=== PATIENT | female | born 2000 | race Hispanic/Latino ===

== ENCOUNTER 2023-12-17 23:35 | Outpatient (CLI) | payer MEDICAID ==
[~2023-12-17] VITALS: Ht 162.6 cm; Wt 92.5 kg
[2023-12-17 23:49] VITALS: BP 110/70; O2SAT 98
[2023-12-18] MEDS ORDERED: PRENTAB9 PO (00:15)
[2023-12-18] MEDS ORDERED: ASPI81CH33 PO (00:15)
[2023-12-18] MEDS ORDERED: HOME MED LIST COMPLETE! XX SCH (00:15)
[2023-12-18 00:52] LABS: HEMATOCRIT 35.3 % (36.0-47.0); HEMOGLOBIN 11.6 g/dl (12.0-15.5); MEAN CORPUSCULAR HEMOGLOBIN 27.2 pg (27.0-33.0); MEAN CORPUSCULAR HGB CONC 32.9 g/dl (32.0-36.5); MEAN CORPUSCULAR VOLUME 82.9 fl (80.0-96.0); PLATELET COUNT, AUTOMATED 317 10^3/uL (150-450); RED BLOOD COUNT 4.26 10^6/uL (4.00-5.40); WHITE BLOOD COUNT 12.3 10^3/uL (4.0-10.0)
[2023-12-18 01:02] LABS: ALBUMIN 2.6 G/DL (3.2-5.2); ALKALINE PHOSPHATASE 131 U/L (46-116); ALT/SGPT < 9 U/L (7.0-40); AST/SGOT 9 U/L (<34); BILIRUBIN,TOTAL 0.2 MG/DL (0.3-1.2); BLOOD UREA NITROGEN 5 MG/DL (9-23); CALCIUM LEVEL 9.1 MG/DL (8.5-10.1); CARBON DIOXIDE LEVEL 28 MMOL/L (20-31); CHLORIDE LEVEL 104 MMOL/L (98-107); CREATININE FOR GFR 0.47 MG/DL (0.55-1.30); GLOMERULAR FILTRATION RATE > 60.0 (>60); GLUCOSE, FASTING 88 MG/DL (60-100); POTASSIUM SERUM 4.3 MMOL/L (3.5-5.1); SODIUM LEVEL 140 MMOL/L (136-145); TOTAL PROTEIN 6.5 G/DL (5.7-8.2)
[2023-12-18 01:44] VITALS: BP 116/73
[2023-12-18] MEDS ORDERED: LR 1,000 ML IV ONE (01:45)
[2023-12-18 03:24] VITALS: BP 124/72
== END 2023-12-18 04:01 | disposition home or self-care (01) ==
LOC: M LDO 23:35
PROVIDERS: ATTEND Advanced Practice Midwife
DX: O21.8 Other vomiting complicating pregnancy (principal); O26.893 Other specified pregnancy related conditions, third trimester; R51.9 Headache, unspecified; O09.33 Supervision of pregnancy with insufficient antenatal care, third trimester; O34.219 Maternal care for unspecified type scar from previous cesarean delivery; Z87.59 Personal history of other complications of pregnancy, childbirth and the puerperium; Z3A.33 33 weeks gestation of pregnancy
CPT/HCPCS: 36415; 59025; 80053; 85027; 96360; 96361; G0463